=== PATIENT | female | born 1985 | race Caucasian/White ===

== ENCOUNTER 2016-10-27 10:10 | Inpatient (IN) | payer OTHER ==
[~2016-10-27] VITALS: Ht 172.7 cm; Wt 84.2 kg
[~2016-10-27 10:10] MED LIST: ALD25 PO; L20 PO; LAC PO; LEVAQUIN750 MG PO; METOPROLOL TART25 M1 PO; ZES5 PO
[2016-10-27 11:22] LABS: UA SPECIFIC GRAVITY 1.015 (1.005-1.035); microscopic required? YES; urine erythrocyte NEGATIVE (NEGATIVE)
[2016-10-27 11:38] LABS: PLATELET COUNT 379 x10^3mcL (130-400)
[2016-10-27 11:52] LABS: CALCIUM 8.3 mg/dL (8.5-10.1); CARBON DIOXIDE 26.2 mmol/L (21-32); CHLORIDE SERUM 101 mmol/L (98-107); CREATININE SERUM 0.8 mg/dL (0.6-1.0); GFR1 > 60 mL/min; GLUCOSE SERUM 140 mg/dL (74-106); POTASSIUM SERUM 3.6 mmol/L (3.5-5.1); SODIUM SERUM 135 mmol/L (136-145)
[2016-10-27 11:56] LABS: ALBUMIN 3.2 g/dL (3.4-5.0); ALKALINE PHOSPHATASE 121 U/L (46-116); ALT/SGPT 26 U/L (14-59); AST/SGOT 24 U/L (15-37); BILIRUBIN TOTAL 0.9 mg/dL (0.20-1.00); TOTAL PROTEIN, SERUM 7.6 g/dL (6.4-8.2)
[2016-10-27 12:05] LABS: BAND NEUTROPHIL 5 % (0-10); BASOPHIL 0 % (0-2); MONOCYTE 6 % (0-7); SEGMENTED NEUTROPHILS 78 % (37-75)
[2016-10-27 12:06] LABS: PLATELET MORPHOLOGY PLATELETS NORMAL; rbc morphology (normal/abnorm) ABNORMAL (NORMAL)
[2016-10-27 13:39] VITALS: BP 155/104
[2016-10-27 14:07] LABS: T3 TOTAL 0.82 ng/mL
[2016-10-27 14:11] LABS: CHOLESTEROL/HDL RATIO 2.9; PHOSPHOROUS 1.9 mg/dL (2.5-4.9)
[2016-10-27 14:18] LABS: FREE T4 0.95 ng/dL (0.76-1.46); T4(THYROXINE) 6.4 ug/dL (4.7-13.3)
[2016-10-27 15:06] LABS: AMPHETAMINE QUAL UR POSITIVE (NEG <=1000)
[2016-10-27 15:21] VITALS: BP 161/112
[2016-10-27 17:18] VITALS: BP 123/94
[2016-10-27 18:03] VITALS: BP 123/94
[2016-10-27 20:27] VITALS: BP 159/107
[2016-10-28 03:49] LABS: BASOPHIL % 0.1 % (0-2); PLATELET COUNT 398 x10^3mcL (130-400)
[2016-10-28 03:54] LABS: RED CELL DISTRIBUTION WIDTH 17.5 % (11.5-14.5)
[2016-10-28 04:00] LABS: CALCIUM 8.5 mg/dL (8.5-10.1); CARBON DIOXIDE 28.9 mmol/L (21-32); CHLORIDE SERUM 102 mmol/L (98-107); CREATININE SERUM 0.9 mg/dL (0.6-1.0); GFR1 > 60 mL/min; GLUCOSE SERUM 126 mg/dL (74-106); PHOSPHOROUS 4.2 mg/dL (2.5-4.9); POTASSIUM SERUM 3.8 mmol/L (3.5-5.1); SODIUM SERUM 137 mmol/L (136-145)
[2016-10-28 06:13] VITALS: BP 159/86
[2016-10-28 09:37] VITALS: BP 158/94
[2016-10-28 14:21] VITALS: BP 122/78
[2016-10-28 21:25] VITALS: BP 135/85
[2016-10-29 05:27] VITALS: BP 134/96
[2016-10-29 06:23] LABS: BASOPHIL % 0.3 % (0-2); PLATELET COUNT 384 x10^3mcL (130-400)
[2016-10-29 06:27] LABS: CALCIUM 8.4 mg/dL (8.5-10.1); CARBON DIOXIDE 26.4 mmol/L (21-32); CHLORIDE SERUM 103 mmol/L (98-107); CREATININE SERUM 0.7 mg/dL (0.6-1.0); GFR1 > 60 mL/min; GLUCOSE SERUM 118 mg/dL (74-106); POTASSIUM SERUM 4.4 mmol/L (3.5-5.1); SODIUM SERUM 136 mmol/L (136-145)
[2016-10-29 07:21] LABS: RED CELL DISTRIBUTION WIDTH 17.7 % (11.5-14.5)
[2016-10-29 09:35] VITALS: BP 134/96
[2016-10-29] MEDS ORDERED: LAC PO (11:42)
[2016-10-29] MEDS ORDERED: CIPRO250 MG PO (11:42)
[2016-10-29] MEDS ORDERED: METOPROLOL TART25 M1 PO (11:44)
[2016-10-29] MEDS ORDERED: ALD25 PO (11:45)
[2016-10-29] MEDS ORDERED: FUROSEMIDE20 MG PO (11:45)
[2016-10-29] MEDS ORDERED: ZES5 PO (11:45)
== END 2016-10-29 13:05 | disposition home or self-care (01) | DRG 203 ==
LOC: ED 10:10 → DU 12:32
PROVIDERS: Emergency Medicine; ADMIT Family Medicine
DX: M94.0 Chondrocostal junction syndrome [Tietze] (principal); N17.0 Acute kidney failure with tubular necrosis; I11.0 Hypertensive heart disease with heart failure; R65.10 Systemic inflammatory response syndrome (SIRS) of non-infectious origin without acute organ dysfunction; I42.0 Dilated cardiomyopathy; E44.0 Moderate protein-calorie malnutrition; I50.9 Heart failure, unspecified; F15.90 Other stimulant use, unspecified, uncomplicated; F17.200 Nicotine dependence, unspecified, uncomplicated; E87.1 Hypo-osmolality and hyponatremia; E83.39 Other disorders of phosphorus metabolism; R73.03 Prediabetes; K21.9 Gastro-esophageal reflux disease without esophagitis; Z91.14 Patient's other noncompliance with medication regimen; Z82.49 Family history of ischemic heart disease and other diseases of the circulatory system
CPT/HCPCS: 82962; 83880; 84439; 94150; C9113; J0696; J1940; J1956; J2270; J2405; J7030; J7613; J7620; J7644; Q0092